=== PATIENT | male | born 1970 | race Caucasian/White ===

== ENCOUNTER → 2019-01-20 | Outpatient (CLI) | payer OTHER ==
--- NOTE | 2019-01-20 16:12 | PCVCIMAG ---
APPROVED REPORT Study performed: 01/20/2019 15:05:24 Exam: Stress Echocardiogram Indication: Hypertension Patient Location: Echo lab Stress Nurse: Grace Matta RN Status: routine Ht: 5 ft 6 in HR: 66 bpm BP: 114/80 mmHg Rhythm: NSR Medical History Medical History: palpitations Procedure The patient underwent an Exercise Stress Test using the Del Protocol. Blood pressure, heart rate, and EKG were monitored. An Echocardiogram was performed by indoor plant technician in four stages in quad fashion. At peak stress, four selected images were obtained and placed side by side with resting images for comparison. Stress Test Details Stress Test: Exercise stress testing was performed using a Del protocol. HR Resting HR: 66 bpmMax Heart Rate (APMHR): 171 bpm Max HR Achieved: 155 bpmTarget HR (85% APMHR): 145 bpm % of APMHR: 90 Recovery HR: 99 bpm HR response to stress: Normal HR response to stress BP Resting BP: 114/80 mmHg Max BP: 180/80 mmHg Recovery BP: 142/82 mmHg BP response to stress: Normal blood pressure response to stress. ECG Resting ECG: Sinus Rhythm Stress ECG: Sinus Rhythm Recovery ECG: Sinus Rhythm Clinical Reason for Termination: Maximal effort Exercise duration: 11 min 27 sec Highest Stage Achieved: Stage 4: 4.2 mph at 16% grade. Exercise capacity: 13.70 METs Overall Exercise Capacity for Age: Normal Stress ECG Conclusion 1. subjectively negative for ischemia 2. electrocardiographically negative for ischemia 2. satisfactory functional capacity Pre-Stress Echo The resting Echocardiogram showed normal left ventricular contractility with an estimated Ejection Fraction of about 55-60%. Normal wall motion in all segments on baseline images. Post-Stress Echo The stress Echocardiogram showed normal left ventricular contractility with an estimated Ejection Fraction of about 60-65%. Normal augmentation of wall motion in all segments on post stress images. Clinical No clinical or ECG evidence for ischemia. Conclusion Clinical Response: Non-ischemic Exercise Capacity: Average Stress ECG Response: Non-ischemic Stress Echo Images: Non-ischemic The left ventricle is normal in size and wall thickness in both the rest and stress images. Trace tricuspid regurgitation. No other significant valvular abnormalities. 1. Low Risk Study Other Information Study Quality: Adequate <Conclusion> The left ventricle is normal in size and wall thickness in both the rest and stress images. Trace tricuspid regurgitation. No other significant valvular abnormalities. 1. Low Risk Study
== END | disposition home or self-care (01) ==
LOC: PCVCIMAG 15:27
PROVIDERS: ATTEND Internal Medicine
DX: I10 Essential (primary) hypertension (principal); R07.9 Chest pain, unspecified; E78.5 Hyperlipidemia, unspecified; R00.2 Palpitations; E66.9 Obesity, unspecified; Z87.891 Personal history of nicotine dependence
CPT/HCPCS: 93325; 93351